=== PATIENT | female | born 1940 | race Caucasian/White ===

== ENCOUNTER → 2018-09-20 | Outpatient (CLI) | payer MEDICARE, MEDICAID ==
[2018-09-20 06:51] LABS: ALBUMIN 3.5 g/dL (3.5-5.0); CALCIUM 9.2 mg/dL (8.4-10.2); HEMATOCRIT 38.4 % (37.0-47.0); HEMOGLOBIN 12.3 g/dL (12.5-16.0); MEAN PLATELET VOLUME 12.2 fl (7.4-10.4); POTASSIUM 3.9 mmol/L (3.6-5.0); RED BLOOD COUNT 4.31 M/mm3 (4.10-5.30); RED CELL DISTRIBUTION WIDTH 13.3 % (11.5-14.5); TOTAL BILIRUBIN 0.7 mg/dL (0.2-1.3); TOTAL PROTEIN 6.3 g/dL (6.3-8.2); WHITE BLOOD COUNT 10.1 K/mm3 (4.8-10.8)
[2018-09-20 15:51] LABS: URINE APPEARANCE CLEAR; URINE BILIRUBIN NEGATIVE (NEGATIVE); URINE BLOOD NEGATIVE (NEGATIVE); URINE COLOR YELLOW; URINE GLUCOSE NEGATIVE (NEGATIVE); URINE KETONE NEGATIVE (NEGATIVE); URINE LEUKOCYTE ESTERASE NEGATIVE (NEGATIVE); URINE NITRATE NEGATIVE (NEGATIVE); URINE PROTEIN(semi-quant) TRACE mg/dL (NEGATIVE); URINE UROBILINOGEN NORMAL (NORMAL); URINE WBC 0-1 /hpf (0-3)
== END ==
LOC: LAB 05:40
PROVIDERS: Family Medicine
DX: E11.9 Type 2 diabetes mellitus without complications (principal); I10 Essential (primary) hypertension; Z79.4 Long term (current) use of insulin

== ENCOUNTER → 2018-10-02 | Outpatient (CLI) | payer MEDICARE, MEDICAID ==
[2018-10-02 08:37] LABS: HEMATOCRIT 39.6 % (37.0-47.0); HEMOGLOBIN 12.4 g/dL (12.5-16.0); RED BLOOD COUNT 4.33 M/mm3 (4.10-5.30); RED CELL DISTRIBUTION WIDTH 13.7 % (11.5-14.5); WHITE BLOOD COUNT 9.7 K/mm3 (4.8-10.8)
[2018-10-02 08:38] LABS: MEAN PLATELET VOLUME 12.8 fl (7.4-10.4)
[2018-10-02 08:44] LABS: ALBUMIN 3.6 g/dL (3.5-5.0); CALCIUM 9.2 mg/dL (8.4-10.2); POTASSIUM 4.1 mmol/L (3.6-5.0); TOTAL BILIRUBIN 0.6 mg/dL (0.2-1.3); TOTAL PROTEIN 6.6 g/dL (6.3-8.2)
== END ==
LOC: LAB 06:50
PROVIDERS: Family Medicine
DX: Z01.419 Encounter for gynecological examination (general) (routine) without abnormal findings (principal); E11.9 Type 2 diabetes mellitus without complications; E55.9 Vitamin D deficiency, unspecified; E78.5 Hyperlipidemia, unspecified; R53.83 Other fatigue

== ENCOUNTER → 2018-10-10 | Outpatient (CLI) | payer MEDICARE, MEDICAID ==
[2018-10-10 06:21] LABS: POTASSIUM 4.4 mmol/L (3.6-5.0)
== END ==
LOC: LAB 05:50
PROVIDERS: Family Medicine
DX: E11.9 Type 2 diabetes mellitus without complications (principal)

== ENCOUNTER → 2018-11-11 | Outpatient (CLI) | payer MEDICARE, MEDICAID ==
[2018-11-11 12:35] LABS: URINE COLOR YELLOW
[2018-11-11 12:36] LABS: URINE APPEARANCE HAZY; URINE BILIRUBIN NEGATIVE (NEGATIVE); URINE BLOOD TRACE (NEGATIVE); URINE GLUCOSE NEGATIVE (NEGATIVE); URINE KETONE NEGATIVE (NEGATIVE); URINE LEUKOCYTE ESTERASE 1+ (NEGATIVE); URINE NITRATE NEGATIVE (NEGATIVE); URINE PROTEIN(semi-quant) TRACE mg/dL (NEGATIVE); URINE UROBILINOGEN NORMAL (NORMAL); URINE WBC >50 /hpf (0-3)
== END ==
LOC: LAB 10:50
PROVIDERS: Family Medicine
DX: R30.0 Dysuria (principal)

== ENCOUNTER → 2018-12-05 | Outpatient (CLI) | payer MEDICARE, MEDICAID | LOC: LAB 05:40 | DX: E55.9 Vitamin D deficiency, unspecified (principal); E11.9 Type 2 diabetes mellitus without complications ==

== ENCOUNTER → 2019-01-19 | Outpatient (CLI) | payer MEDICARE, MEDICAID ==
[2019-01-19 23:50] LABS: HEMATOCRIT 35.9 % (37.0-47.0); HEMOGLOBIN 11.5 g/dL (12.5-16.0); MEAN PLATELET VOLUME 12.1 fl (7.4-10.4); RED BLOOD COUNT 4.05 M/mm3 (4.10-5.30); RED CELL DISTRIBUTION WIDTH 13.5 % (11.5-14.5)
[2019-01-19 23:51] LABS: POTASSIUM 4.2 mmol/L (3.6-5.0)
[2019-01-19 23:52] LABS: CALCIUM 9.1 mg/dL (8.4-10.2)
== END ==
LOC: LAB 16:45
PROVIDERS: Family Medicine
DX: R30.0 Dysuria (principal); E83.119 Hemochromatosis, unspecified

== ENCOUNTER → 2019-01-21 | Outpatient (CLI) | payer MEDICARE, MEDICAID ==
[2019-01-22 08:00] LABS: URINE APPEARANCE CLOUDY; URINE COLOR YELLOW; URINE PROTEIN(semi-quant) TRACE mg/dL (NEGATIVE)
[2019-01-22 08:01] LABS: URINE BILIRUBIN NEGATIVE (NEGATIVE); URINE BLOOD 50 ery/uL (NEGATIVE); URINE GLUCOSE NEGATIVE (NEGATIVE); URINE KETONE NEGATIVE (NEGATIVE); URINE LEUKOCYTE ESTERASE 1+ (NEGATIVE); URINE NITRATE NEGATIVE (NEGATIVE); URINE UROBILINOGEN NORMAL (NORMAL); URINE WBC >50 /hpf (0-3)
== END ==
LOC: LAB 12:15
PROVIDERS: Family Medicine
DX: R30.0 Dysuria (principal)

== ENCOUNTER → 2019-03-30 | Outpatient (CLI) | payer MEDICARE, MEDICAID | LOC: LAB 06:40 | DX: E11.9 Type 2 diabetes mellitus without complications (principal) ==

== ENCOUNTER 2019-05-24 17:17 | Emergency (ER) | payer MEDICARE ==
[~2019-05-24] VITALS: Wt 107.0 kg
[2019-05-24 18:10] LABS: MEAN CELL VOLUME 89 fl (78-100); MEAN CORPUSCULAR HEMOGLOBIN 28 pg (27-31); MEAN CORPUSCULAR HGB CONC 32 g/dL (33-37); MEAN PLATELET VOLUME 11.6 fl (7.4-10.4); PLATELET COUNT 220 K/mm3 (130-400); RED BLOOD COUNT 4.25 M/mm3 (4.10-5.30); RED CELL DISTRIBUTION WIDTH 13.5 % (11.5-14.5); WHITE BLOOD COUNT 15.5 K/mm3 (4.8-10.8)
[2019-05-24 18:16] LABS: ALBUMIN 3.4 g/dL (3.4-4.8); POTASSIUM 3.9 mmol/L (3.5-5.1)
[2019-05-24 18:17] LABS: CALCIUM 9.1 mg/dL (8.3-10.5)
[2019-05-24 18:18] LABS: TOTAL PROTEIN 6.9 g/dL (6.2-8.1)
[2019-05-24 18:20] LABS: TOTAL BILIRUBIN 0.8 mg/dL (0.2-1.2)
[2019-05-24] MEDS ORDERED: RT ALBUTEROL CC18 GM IH (19:26)
[2019-05-24] MEDS ORDERED: ELIQUIS2.5 MG PO (19:26)
[2019-05-24] MEDS ORDERED: DULCOLAX S10 MG/SUPP RC (19:26)
[2019-05-24] MEDS ORDERED: EYE DROP ORIGIN15 ML OP (19:28)
[2019-05-24] MEDS ORDERED: LASIX20 M1 PO (19:29)
[2019-05-24] MEDS ORDERED: NEURONTIN300 M1 PO (19:29)
[2019-05-24 19:32] LABS: URINE APPEARANCE HAZY; URINE BILIRUBIN NEGATIVE (NEGATIVE); URINE COLOR YELLOW; URINE GLUCOSE NEGATIVE (NEGATIVE); URINE KETONE NEGATIVE (NEGATIVE); URINE PROTEIN(semi-quant) NEGATIVE (NEGATIVE); URINE UROBILINOGEN NORMAL (NORMAL)
[2019-05-24 19:33] LABS: URINE BLOOD TRACE (NEGATIVE); URINE LEUKOCYTE ESTERASE 1+ (NEGATIVE); URINE NITRATE NEGATIVE (NEGATIVE); URINE WBC >50 /hpf (0-3)
[2019-05-24] MEDS ORDERED: FIASP 100100 UNIT/2 (19:33)
[2019-05-24] MEDS ORDERED: LEVEMIR100 U/M1 SQ (19:34)
[2019-05-24] MEDS ORDERED: [UNRECOGNIZED DRUG - OTHER] PO (19:36)
[2019-05-24] MEDS ORDERED: GOOD NEIGH1200 MG/15 PO (19:38)
[2019-05-24] MEDS ORDERED: MUCINEX 60600 MG/TA1 PO (19:39)
[2019-05-24] MEDS ORDERED: PEPCID 20MG TAB20 MG PO (19:40)
[2019-05-24] MEDS ORDERED: PROBIOTIC1 EAC3 PO (19:40)
[2019-05-24] MEDS ORDERED: NITROSTAT0.4 M1 SL (19:40)
[2019-05-24] MEDS ORDERED: ULTRAM50 M1 PO (19:41)
[2019-05-24] MEDS ORDERED: VOLTAREN GEL1% TP (19:42)
[2019-05-24] MEDS ORDERED: D3-5000 90 MG-51 TAB PO (19:42)
[2019-05-24] MEDS ORDERED: ZOLOFT 50MG50 MG PO (19:43)
[2019-05-24 20:02] LABS: BAND 1 % (0-10); LYMPHOCYTE 4 % (20-51); MONOCYTE 5 % (3-10); NEUTROPHILS 90 % (42-75)
[2019-05-24 21:00] VITALS: BP 124/66
== END 2019-05-24 21:00 | disposition short-term general hospital (02) ==
LOC: ED 17:17
PROVIDERS: Physician Assistant
DX: J18.1 Lobar pneumonia, unspecified organism (principal); A41.9 Sepsis, unspecified organism; I50.9 Heart failure, unspecified; I48.91 Unspecified atrial fibrillation; N39.0 Urinary tract infection, site not specified; E11.9 Type 2 diabetes mellitus without complications; F03.90 Unspecified dementia, unspecified severity, without behavioral disturbance, psychotic disturbance, mood disturbance, and anxiety; K21.9 Gastro-esophageal reflux disease without esophagitis; Z86.718 Personal history of other venous thrombosis and embolism; Z88.5 Allergy status to narcotic agent; Z88.6 Allergy status to analgesic agent; Z79.01 Long term (current) use of anticoagulants; Z79.4 Long term (current) use of insulin
CPT/HCPCS: J1650; J1940; J2543; J3490; J7120

== ENCOUNTER → 2019-10-01 | Outpatient (CLI) | payer MEDICARE, MEDICAID ==
[2019-06-26 16:42] VITALS: BP 170/89
[~2019-10-01] MED LIST: ALBUTEROL2.5 MG/3 M IH; ASPIRIN 81M81 MG/TA2 PO; D3-5000 90 MG-51 TAB PO; DULCOLAX S10 MG/SUPP RC; ELIQUIS2.5 MG PO; EYE DROP ORIGIN15 ML OP; FIASP 100100 UNIT/2; FLEET ENEM1 BOT/133 RC; GOOD NEIGH1200 MG/15 PO; LASIX20 M1 PO; LEVEMIR100 U/M1 SQ; MIRALAX17 GM PO; MUCINEX 60600 MG/TA1 PO; NEURONTIN300 M1 PO; NITROSTAT0.4 M1 SL; NYAMYC100000 U/G TP; PEPCID 20MG TAB20 MG PO; POTASSIUM CHLO10 ME7 PO; PROBIOTIC1 EAC3 PO; RT ALBUTEROL CC18 GM IH; TESSALON PERLE100 M1 PO; TYLENOL 325MG325 MG PO; TYLENOL SINUS1 EACH PO; ULTRAM50 M1 PO; VOLTAREN GEL1% TP; ZITHROMAX Z PA250 MG PO; ZOLOFT 50MG50 MG PO; [UNRECOGNIZED DRUG - OTHER] PO
== END ==
LOC: LAB 07:00
DX: E11.9 Type 2 diabetes mellitus without complications (principal)

== ENCOUNTER → 2019-12-31 | Outpatient (CLI) | payer MEDICARE, MEDICAID ==
[2019-06-26 16:42] VITALS: BP 170/89
[2019-12-31 11:34] LABS: URINE APPEARANCE CLOUDY; URINE BILIRUBIN NEGATIVE (NEGATIVE); URINE COLOR YELLOW; URINE GLUCOSE NEGATIVE (NEGATIVE); URINE KETONE NEGATIVE (NEGATIVE); URINE NITRATE POSITIVE (NEGATIVE); URINE PROTEIN(semi-quant) TRACE mg/dL (NEGATIVE); URINE UROBILINOGEN NORMAL (NORMAL)
[2019-12-31 11:35] LABS: URINE BLOOD TRACE (NEGATIVE); URINE LEUKOCYTE ESTERASE 1+ (NEGATIVE); URINE MUCUS PRESENT (NOT PRESENT); URINE WBC >50 /hpf (0-3)
== END ==
LOC: LAB 10:52
PROVIDERS: Family Medicine
DX: N30.00 Acute cystitis without hematuria (principal)

== ENCOUNTER → 2020-01-04 | Outpatient (CLI) | payer MEDICARE, MEDICAID ==
[2019-06-26 16:42] VITALS: BP 170/89
[2020-01-04 15:03] LABS: EOS # 0.1 (0.04-0.40); EOS % 1.5 % (1.0-5.0); HEMATOCRIT 36.9 % (37.0-47.0); HEMOGLOBIN 11.3 g/dL (12.5-16.0); LYMPH# 1.7 (1.50-4.00); MEAN CELL VOLUME 91 fl (78-100); MEAN CORPUSCULAR HEMOGLOBIN 28 pg (27-31); MEAN CORPUSCULAR HGB CONC 31 g/dL (33-37); MEAN PLATELET VOLUME 11.6 fl (7.4-10.4); MONO # 0.6 (0.20-0.80); NEU # 5.4 (1.40-6.50); PLATELET COUNT 209 K/mm3 (130-400); RED BLOOD COUNT 4.04 M/mm3 (4.10-5.30); RED CELL DISTRIBUTION WIDTH 13.5 % (11.5-14.5); WHITE BLOOD COUNT 7.9 K/mm3 (4.8-10.8)
[2020-01-04 15:12] LABS: ALBUMIN 3.5 g/dL (3.4-4.8); CALCIUM 8.8 mg/dL (8.3-10.5); POTASSIUM 4.2 mmol/L (3.5-5.1); TOTAL BILIRUBIN 0.4 mg/dL (0.2-1.2)
== END ==
LOC: LAB 14:53
PROVIDERS: Family Medicine
DX: J96.00 Acute respiratory failure, unspecified whether with hypoxia or hypercapnia (principal)

== ENCOUNTER → 2020-01-07 | Outpatient (CLI) | payer MEDICARE, MEDICAID ==
[2019-06-26 16:42] VITALS: BP 170/89
== END ==
LOC: RAD 11:18
DX: R05 Cough (principal)

== ENCOUNTER → 2020-03-31 | Outpatient (CLI) | payer MEDICARE, MEDICAID ==
[2019-06-26 16:42] VITALS: BP 170/89
== END ==
LOC: LAB 11:45
DX: E11.9 Type 2 diabetes mellitus without complications (principal)

== ENCOUNTER → 2020-07-10 | Outpatient (CLI) | payer MEDICARE, MEDICAID ==
[2019-06-26 16:42] VITALS: BP 170/89
== END ==
LOC: LAB 07:27
DX: S31.109A Unspecified open wound of abdominal wall, unspecified quadrant without penetration into peritoneal cavity, initial encounter (principal)

== ENCOUNTER → 2020-07-22 | Outpatient (CLI) | payer MEDICARE, MEDICAID ==
[2019-06-26 16:42] VITALS: BP 170/89
[2020-07-22 08:46] LABS: POTASSIUM 3.9 mmol/L (3.5-5.1)
[2020-07-22 08:47] LABS: CALCIUM 8.9 mg/dL (8.3-10.5)
== END ==
LOC: LAB 08:34
PROVIDERS: Family Medicine
DX: E11.9 Type 2 diabetes mellitus without complications (principal)

== ENCOUNTER → 2020-09-10 | Outpatient (CLI) | payer MEDICARE, MEDICAID ==
[2019-06-26 16:42] VITALS: BP 170/89
[2020-09-10 11:56] LABS: BASO # 0.1 (0.02-0.10); EOS # 0.4 (0.04-0.40); EOS % 3.7 % (1.0-5.0); HEMATOCRIT 35.8 % (37.0-47.0); LYMPH# 2.4 (1.50-4.00); MEAN CELL VOLUME 91 fl (78-100); MEAN CORPUSCULAR HEMOGLOBIN 28 pg (27-31); MEAN CORPUSCULAR HGB CONC 31 g/dL (33-37); MONO # 0.9 (0.20-0.80); NEU # 6.1 (1.40-6.50); PLATELET COUNT 218 K/mm3 (130-400); RED BLOOD COUNT 3.93 M/mm3 (4.10-5.30); RED CELL DISTRIBUTION WIDTH 13.4 % (11.5-14.5)
[2020-09-10 12:00] LABS: ALBUMIN 3.5 g/dL (3.4-4.8); POTASSIUM 4.3 mmol/L (3.5-5.1)
[2020-09-10 12:01] LABS: CALCIUM 9.2 mg/dL (8.3-10.5)
[2020-09-10 12:03] LABS: TOTAL PROTEIN 6.5 g/dL (6.2-8.1)
[2020-09-10 12:04] LABS: TOTAL BILIRUBIN 0.4 mg/dL (0.2-1.2)
[2020-09-10 12:15] LABS: MEAN PLATELET VOLUME 12.2 fl (7.4-10.4)
== END ==
LOC: LAB 11:27
PROVIDERS: Internal Medicine
DX: E11.9 Type 2 diabetes mellitus without complications (principal)

== ENCOUNTER → 2020-10-01 | Outpatient (CLI) | payer MEDICARE, MEDICAID ==
[2019-06-26 16:42] VITALS: BP 170/89
== END ==
LOC: LAB 09:35
DX: E11.9 Type 2 diabetes mellitus without complications (principal)

== ENCOUNTER → 2020-11-17 | Outpatient (CLI) | payer MEDICARE, MEDICAID ==
[2019-06-26 16:42] VITALS: BP 170/89
[2020-11-17 11:59] LABS: HEMATOCRIT 35.5 % (37.0-47.0); HEMOGLOBIN 10.7 g/dL (12.5-16.0); RED BLOOD COUNT 3.9 M/mm3 (4.10-5.30); RED CELL DISTRIBUTION WIDTH 13.3 % (11.5-14.5); WHITE BLOOD COUNT 8.6 K/mm3 (4.8-10.8)
[2020-11-17 12:02] LABS: ALBUMIN 3.4 g/dL (3.4-4.8)
[2020-11-17 12:03] LABS: CALCIUM 8.7 mg/dL (8.3-10.5)
[2020-11-17 12:04] LABS: TOTAL PROTEIN 6.1 g/dL (6.2-8.1)
[2020-11-17 12:06] LABS: TOTAL BILIRUBIN 0.5 mg/dL (0.2-1.2)
== END ==
LOC: LAB 10:25
PROVIDERS: Family Medicine
DX: E11.9 Type 2 diabetes mellitus without complications (principal); I48.91 Unspecified atrial fibrillation; E87.6 Hypokalemia

== ENCOUNTER → 2021-02-24 | Outpatient (CLI) | payer MEDICARE, MEDICAID ==
[2019-06-26 16:42] VITALS: BP 170/89
[2021-02-24 13:02] LABS: HEMATOCRIT 35.3 % (37.0-47.0); HEMOGLOBIN 10.8 g/dL (12.5-16.0); RED BLOOD COUNT 3.92 M/mm3 (4.10-5.30); RED CELL DISTRIBUTION WIDTH 13.1 % (11.5-14.5); WHITE BLOOD COUNT 8.1 K/mm3 (4.8-10.8)
[2021-02-24 13:22] LABS: ALBUMIN 3.3 g/dL (3.4-4.8); POTASSIUM 4.4 mmol/L (3.5-5.1)
[2021-02-24 13:23] LABS: CALCIUM 8.8 mg/dL (8.3-10.5)
[2021-02-24 13:24] LABS: TOTAL PROTEIN 6.4 g/dL (6.2-8.1)
[2021-02-24 13:26] LABS: TOTAL BILIRUBIN 0.4 mg/dL (0.2-1.2)
[2021-02-24 13:57] LABS: MEAN PLATELET VOLUME 12.5 fl (7.4-10.4)
== END ==
LOC: LAB 12:34
PROVIDERS: Family Medicine
DX: D64.9 Anemia, unspecified (principal); E11.9 Type 2 diabetes mellitus without complications

== ENCOUNTER → 2021-03-31 | Outpatient (CLI) | payer MEDICARE, MEDICAID ==
[2019-06-26 16:42] VITALS: BP 170/89
== END ==
LOC: LAB 12:05
DX: E11.9 Type 2 diabetes mellitus without complications (principal)

== ENCOUNTER → 2021-05-27 | Outpatient (CLI) | payer MEDICARE, MEDICAID ==
[2021-05-27 16:26] LABS: URINE APPEARANCE HAZY; URINE BILIRUBIN NEGATIVE (NEGATIVE); URINE BLOOD TRACE (NEGATIVE); URINE COLOR YELLOW; URINE GLUCOSE NEGATIVE (NEGATIVE); URINE KETONE NEGATIVE (NEGATIVE); URINE LEUKOCYTE ESTERASE 1+ (NEGATIVE); URINE NITRATE NEGATIVE (NEGATIVE); URINE PROTEIN(semi-quant) TRACE mg/dL (NEGATIVE); URINE UROBILINOGEN NORMAL (NORMAL)
== END ==
LOC: LAB 15:46
PROVIDERS: Family Medicine
DX: N39.0 Urinary tract infection, site not specified (principal)

== ENCOUNTER → 2021-06-09 | Outpatient (CLI) | payer MEDICARE, MEDICAID ==
[2021-06-09 16:56] LABS: HEMOGLOBIN 11.7 g/dL (12.5-16.0); MEAN PLATELET VOLUME 11.8 fl (7.4-10.4); RED BLOOD COUNT 4.22 M/mm3 (4.10-5.30); WHITE BLOOD COUNT 8.2 K/mm3 (4.8-10.8)
[2021-06-09 17:00] LABS: ALBUMIN 3.6 g/dL (3.4-4.8)
[2021-06-09 17:01] LABS: CALCIUM 9.5 mg/dL (8.3-10.5)
[2021-06-09 17:02] LABS: TOTAL PROTEIN 7.1 g/dL (6.2-8.1)
[2021-06-09 17:04] LABS: TOTAL BILIRUBIN 0.4 mg/dL (0.2-1.2)
== END ==
LOC: LAB 16:14
PROVIDERS: Family Medicine
DX: R30.0 Dysuria (principal); M54.6 Pain in thoracic spine

== ENCOUNTER → 2021-06-11 | Outpatient (CLI) | payer MEDICARE, MEDICAID ==
[2021-06-11 17:35] LABS: URINE APPEARANCE HAZY; URINE BILIRUBIN NEGATIVE (NEGATIVE); URINE COLOR LIGHT YELLOW; URINE GLUCOSE NEGATIVE (NEGATIVE); URINE KETONE NEGATIVE (NEGATIVE); URINE NITRATE NEGATIVE (NEGATIVE); URINE PROTEIN(semi-quant) TRACE mg/dL (NEGATIVE); URINE UROBILINOGEN NORMAL (NORMAL)
[2021-06-11 17:36] LABS: URINE BLOOD NEGATIVE (NEGATIVE); URINE LEUKOCYTE ESTERASE 1+ (NEGATIVE); URINE WBC 16-30 /hpf (0-3)
== END ==
LOC: LAB 16:42
PROVIDERS: Family Medicine
DX: N39.0 Urinary tract infection, site not specified (principal)

== ENCOUNTER 2021-10-30 09:15 | Emergency (ER) | payer MEDICARE, MEDICAID ==
[~2021-10-30] VITALS: Ht 162.6 cm; Wt 107.3 kg
[2021-10-30 09:36] VITALS: BP 125/79
== END 2021-10-30 09:45 | disposition left against medical advice (07) ==
LOC: ED 09:15
DX: R10.9 Unspecified abdominal pain (principal)

== ENCOUNTER → 2021-12-16 | Day surgery (SDC) | payer MEDICARE, MEDICAID | END | disposition home or self-care (01) | LOC: MSO 06:40 | DX: E11.36 Type 2 diabetes mellitus with diabetic cataract (principal); H26.8 Other specified cataract; H25.13 Age-related nuclear cataract, bilateral; H40.1430 Capsular glaucoma with pseudoexfoliation of lens, bilateral, stage unspecified; H02.836 Dermatochalasis of left eye, unspecified eyelid; H02.833 Dermatochalasis of right eye, unspecified eyelid; H02.886 Meibomian gland dysfunction of left eye, unspecified eyelid; H02.883 Meibomian gland dysfunction of right eye, unspecified eyelid; I48.91 Unspecified atrial fibrillation; Z79.01 Long term (current) use of anticoagulants; Z79.4 Long term (current) use of insulin; Z79.82 Long term (current) use of aspirin; Z99.81 Dependence on supplemental oxygen; Z79.899 Other long term (current) drug therapy | CPT/HCPCS: 00142; J0171; J2704; J3010 ==

== ENCOUNTER → 2022-03-31 | Outpatient (CLI) | payer MEDICARE, MEDICAID | LOC: LAB 11:02 | DX: E11.9 Type 2 diabetes mellitus without complications (principal) ==

== ENCOUNTER → 2022-06-16 | Day surgery (SDC) | payer MEDICARE, MEDICAID | LOC: MSO 09:33 | DX: H25.12 Age-related nuclear cataract, left eye (principal) | CPT/HCPCS: 00142; J0171; J2250; V2632 ==

== ENCOUNTER 2023-01-21 11:08 | Emergency (ER) | payer MEDICARE, MEDICAID ==
[~2023-01-21] VITALS: Ht 162.6 cm; Wt 97.4 kg
[2023-01-21 11:44] LABS: BASO # 0.05 K/mm3 (0.02-0.10); EOS # 0.15 K/mm3 (0.04-0.40); EOS % 1.3 % (1.0-5.0); HEMATOCRIT 40.5 % (37.0-47.0); HEMOGLOBIN 12.7 g/dL (12.5-16.0); LYMPH# 1.76 K/mm3 (1.50-4.00); MEAN CELL VOLUME 88 fl (78-100); MEAN CORPUSCULAR HEMOGLOBIN 28 pg (27-31); MEAN CORPUSCULAR HGB CONC 31 g/dL (33-37); MEAN PLATELET VOLUME 11.6 fl (7.4-10.4); MONO # 0.84 K/mm3 (0.20-0.80); NEU # 9.02 K/mm3 (1.40-6.50); PLATELET COUNT 205 K/mm3 (130-400); RED BLOOD COUNT 4.58 M/mm3 (4.10-5.30); RED CELL DISTRIBUTION WIDTH 13.4 % (11.5-14.5); WHITE BLOOD COUNT 11.9 K/mm3 (4.8-10.8)
[2023-01-21] MEDS ORDERED: ARTIFICIAL TEAR1512 OP (11:46)
[2023-01-21 11:50] LABS: ALBUMIN 3.5 g/dL (3.4-4.8); POTASSIUM 4.4 mmol/L (3.5-5.1)
[2023-01-21 11:52] LABS: CALCIUM 9.8 mg/dL (8.3-10.5)
[2023-01-21 11:53] LABS: TOTAL PROTEIN 7.9 g/dL (6.2-8.1)
[2023-01-21] MEDS ORDERED: NOVOLOG 100U100 U/ML (11:54)
[2023-01-21 11:55] LABS: TOTAL BILIRUBIN 0.8 mg/dL (0.2-1.2)
[2023-01-21] MEDS ORDERED: OMEPRAZOLE40 MG PO (11:55)
[2023-01-21] MEDS ORDERED: TRAMADOL 50 MG TAB PO (11:58)
[2023-01-21] MEDS ORDERED: PREDNISONE20 M1 PO (12:42)
[2023-01-21] MEDS ORDERED: MUCINEX1200 MG PO (12:42)
[2023-01-21] MEDS ORDERED: CEPHALEXIN500 M2 PO (12:42)
[2023-01-21 13:11] VITALS: BP 122/48
== END 2023-01-21 13:15 | disposition home or self-care (01) ==
LOC: ED 11:08
PROVIDERS: Family Medicine
DX: M25.531 Pain in right wrist (principal); J44.9 Chronic obstructive pulmonary disease, unspecified; Z99.81 Dependence on supplemental oxygen
CPT/HCPCS: J1885